=== PATIENT | male | born 2000 | race African-American/Black ===

== ENCOUNTER 2023-05-29 23:41 | Emergency (ER) | payer SELFPAY ==
[~2023-05-29] VITALS: Ht 167.6 cm; Wt 75.0 kg
[2023-05-30 00:04] VITALS: BP 114/70; PULSE 88; RESP 15; TEMP 98.2; O2SAT 95
== END 2023-05-30 02:00 | disposition left against medical advice (07) ==
LOC: ER 23:41
DX: R51.9 Headache, unspecified (principal); Z53.21 Procedure and treatment not carried out due to patient leaving prior to being seen by health care provider
CPT/HCPCS: 99281